=== PATIENT | male | born 1945 | race Caucasian/White ===

== ENCOUNTER 2016-10-08 12:33 | Inpatient (IN) | payer MEDICARE, BC ==
[~2016-10-08 12:33] MED LIST: ALDACTONE50 M1 PO; AMARYL1 M1 PO; AMARYL2 M1 PO; CIPRO500 M2 PO; CIPROFLOXACIN500 M4 PO; COLACE100 M1 PO; CORGARD PO; FISH OIL 1,2001 EAC5 PO; FLOMAX0.4 M1 PO; HYDROCHLOROTHIA25 M1 PO; IBUPROFEN800 M1 PO; LASIX40 M1 PO; LOVENOX100 MG/1 M SC; LOVENOX150 MG/1 M PO; MAGNESIUM250 M3 PO; MEDROL4 M2 PO; MILK THISTLE500 M1 PO; MOTRIN IB200 M1 PO; MULTIVITAMINS1 EAC6 PO; MULTIVITAMINS1 EAC8 PO; PERCOCET 5-3251 EACH PO; PHENERGAN25 M4 PO; POTASSIUM99 M4 PO; PREDNISONE50 M1 PO; PRILOSEC OTC20 M1 PO; PROTONIX40 M2 PO; RESTORIL30 M1 PO; VITAMIN C1000 M1 PO; VITAMIN D PO; VITAMIN D2000 UNI1 PO; WARFARIN SODIUM5 M2 PO; ZEBUTAL 50-3251 EAC1 PO; ZINC50 M2 PO; ZOFRAN ODT8 MG PO
[2016-10-08] MEDS ORDERED: MIRALAX17 G2 PO (13:18)
[2016-10-08] MEDS ORDERED: ENULOSE10 GM/151 PO (13:18)
[2016-10-08] MEDS ORDERED: OXYCODONE HCL5 M1 PO (13:18)
[2016-10-08] MEDS ORDERED: CALCI-CHEW500 MG PO (13:19)
[2016-10-08] MEDS ORDERED: MARINOL5 M1 PO (13:19)
[2016-10-08] MEDS ORDERED: ATIVAN0.5 M1 PO (13:36)
[2016-10-08] MEDS ORDERED: ZOFRAN4 M2 PO (14:18)
[2016-10-11] MEDS ORDERED: SENNA (14:11)
[2016-10-11] MEDS ORDERED: ROXANOL PO/SL (14:12)
[2016-10-11] MEDS ORDERED: ATIVAN0.5 M1 PO/SL (14:13)
== END 2016-10-11 15:28 | disposition hospice, home (50) | DRG 436 ==
LOC: 5WF 12:33
PROVIDERS: ADMIT Internal Medicine Hematology & Oncology
PROC: 05H633Z Insertion of Infusion Device into Left Subclavian Vein, Percutaneous Approach (ICD-10-PCS; 2016-10-08)
PROC: 0W9G3ZZ Drainage of Peritoneal Cavity, Percutaneous Approach (ICD-10-PCS; principal; 2016-10-11)
DX: C22.0 Liver cell carcinoma (principal); K76.6 Portal hypertension; N17.9 Acute kidney failure, unspecified; I95.9 Hypotension, unspecified; K70.31 Alcoholic cirrhosis of liver with ascites; I12.9 Hypertensive chronic kidney disease with stage 1 through stage 4 chronic kidney disease, or unspecified chronic kidney disease; K59.03 Drug induced constipation; G89.3 Neoplasm related pain (acute) (chronic); Z85.05 Personal history of malignant neoplasm of liver; M19.90 Unspecified osteoarthritis, unspecified site; Z87.898 Personal history of other specified conditions; N18.9 Chronic kidney disease, unspecified; Z79.891 Long term (current) use of opiate analgesic; Z66 Do not resuscitate; T40.605A Adverse effect of unspecified narcotics, initial encounter; R63.4 Abnormal weight loss; Z51.5 Encounter for palliative care
CPT/HCPCS: C1729; C1751; J7030